=== PATIENT | female | born 1950 | race Caucasian/White ===

== ENCOUNTER 2017-06-02 10:54 | Inpatient (IN) | payer MEDICARE, MEDICAID ==
[~2017-06-02] VITALS: Ht 157.5 cm; Wt 73.0 kg
[~2017-06-02 10:54] MED LIST: BENA10TA3; CLOB15CR4; INSU3INS6 SUBCUT; METF850T2 PO; PARO-41; SIMV40TA5; TRAM50TA3
[2017-06-02] MEDS ORDERED: FAMOTIDINE 20MG/2ML VIAL IV STA (11:21)
[2017-06-02] MEDS ORDERED: SODIUM CHLORIDE 0.9% 500 ML IV ONE (11:21)
[2017-06-02] MEDS ORDERED: ONDANSETRON HCL 4MG/2ML VIAL IV STA (11:21)
[2017-06-02 11:51] LABS: BASOPHILS % 0.3 % (0.0-2.0); EOSINOPHILS % 0.9 % (0.0-5.0); HEMATOCRIT. 35.5 % (36.0-48.0); HEMOGLOBIN. 11.7 g/dL (12.0-16.0); LYMPHOCYTES % 17.3 % (20.0-50.0); MEAN CORPUSCULAR HEMOGLOBIN 27.6 pg (28.0-32.0); MEAN CORPUSCULAR VOLUME 83.6 fL (81.0-99.0); MEAN PLATELET VOLUME 10.4 fl (7.4-10.4); MONOCYTES % 7.4 % (2.0-8.0); NEUTROPHILS % 74.1 % (40.0-76.0); PLATELET 99 x1000/uL (130-400); RED BLOOD CELL COUNT 4.25 mill/uL (4.2-5.4); RED CELL DISTRIBUTION WIDTH 16.4 % (11.6-14.6)
[2017-06-02 12:00] LABS: INR 1.1; PARTIAL THROMBOPLASTIN TIME 24.1 sec (23.4-31.0); PROTHROMBIN TIME 11.6 sec (9.4-11.6)
[2017-06-02 12:09] LABS: CARBON DIOXIDE 25 mEq/L (21-32); CHLORIDE 104 mEq/L (98-107); CREATINE KINASE 74 IU/L (26-192); TROPONIN I < 0.02 ng/mL (0.00-0.04)
[2017-06-02 12:13] LABS: CREATINE KINASE MB FRACTION 0.6 ng/mL (0.5-3.6)
[2017-06-02 14:02] LABS: CLARITY URINE CLEAR (CLEAR); COLOR URINE YELLOW (YELLOW); GLUCOSE URINE NEGATIVE (NEGATIVE); KETONES URINE NEGATIVE (NEGATIVE); LEUKOCYTE ESTERASE URINE NEGATIVE (NEGATIVE); NITRITE URINE NEGATIVE (NEGATIVE); OCCULT BLOOD URINE NEGATIVE (NEGATIVE); PH URINE 6.5 (4.5-8.0); PROTEIN URINE TRACE (NEGATIVE); SPECIFIC GRAVITY URINE 1.005 (1.005-1.030); UROBILINOGEN URINE 0.2 E.U./dL (0.2-1.0)
[2017-06-02 15:54] VITALS: BP 135/83
[2017-06-02 16:00] VITALS: BP 135/83
[2017-06-02] MEDS ORDERED: LOVA40TA73 PO (16:23)
[2017-06-02] MEDS ORDERED: ALBU18HF2 IH (16:25)
[2017-06-02] MEDS ORDERED: OMEP40CA34 PO (16:25)
[2017-06-02] MEDS ORDERED: SAXA5TAB PO (16:25)
[2017-06-02] MEDS ORDERED: TRAMADOL 50MG TABLET PO PRN (16:45)
[2017-06-02] MEDS ORDERED: ONDANSETRON HCL 4MG TABLET PO PRN (16:45)
[2017-06-02] MEDS ORDERED: DEXTROSE 50% WATER 50ML SYRINGE IV PRN (16:45)
[2017-06-02] MEDS ORDERED: ACETAMINOPHEN 325MG TABLET PO PRN (16:45)
[2017-06-02] MEDS ORDERED: METFORMIN HCL 850MG TABLET PO SCH (17:00)
[2017-06-02] MEDS: INSULIN LISPRO 100 UNITS/ML SUBCUT SCH ×2 (17:15→21:06)
[2017-06-02] MEDS: BLOOD SUGAR DIAGNOSTIC STRIP TEST SCH ×2 (17:31→21:06)
[2017-06-02] MEDS: METFORMIN HCL 500MG TABLET PO SCH (17:46)
[2017-06-02] MEDS ORDERED: POTASSIUM CHLORIDE 20MEQ TABLET SR PO NR (20:00)
[2017-06-02 20:40] VITALS: BP 118/62
[2017-06-02] MEDS: PAROXETINE HCL 20MG TABLET PO SCH (20:55)
[2017-06-02] MEDS: ATORVASTATIN CALCIUM 10MG TABLET PO SCH (20:56)
[2017-06-02] MEDS ORDERED: MEDICATION NOT ON FORMULARY EA (Lovastatin 40 MG) PO SCH (21:00)
[2017-06-02] MEDS ORDERED: ZOLPIDEM TARTRATE 5MG TABLET PO PRN (21:00)
[2017-06-03 00:48] VITALS: BP 106/66
[2017-06-03 04:00] VITALS: BP 140/85
[2017-06-03] MEDS: INSULIN LISPRO 100 UNITS/ML SUBCUT SCH ×4 (05:17→21:00)
[2017-06-03] MEDS: BLOOD SUGAR DIAGNOSTIC STRIP TEST SCH ×4 (05:17→21:00)
[2017-06-03 06:07] LABS: BASOPHILS % 0.4 % (0.0-2.0); EOSINOPHILS % 1.5 % (0.0-5.0); HEMATOCRIT. 35.2 % (36.0-48.0); HEMOGLOBIN. 11.8 g/dL (12.0-16.0); LYMPHOCYTES % 38.3 % (20.0-50.0); MEAN CORPUSCULAR HEMOGLOBIN 28.1 pg (28.0-32.0); MEAN CORPUSCULAR VOLUME 84.1 fL (81.0-99.0); MEAN PLATELET VOLUME 10.8 fl (7.4-10.4); NEUTROPHILS % 51.8 % (40.0-76.0); PLATELET 101 x1000/uL (130-400); RED BLOOD CELL COUNT 4.18 mill/uL (4.2-5.4); RED CELL DISTRIBUTION WIDTH 15.9 % (11.6-14.6)
[2017-06-03] MEDS: PANTOPRAZOLE 40MG DR TABLET PO SCH (06:23)
[2017-06-03] MEDS: METFORMIN HCL 500MG TABLET PO SCH ×2 (06:23→17:36)
[2017-06-03 06:45] LABS: CARBON DIOXIDE 26 mEq/L (21-32); CHLORIDE 107 mEq/L (98-107)
[2017-06-03 08:00] VITALS: BP 142/85
[2017-06-03] MEDS ORDERED: MEDICATION NOT ON FORMULARY EA (Omeprazole 1 CAP) PO SCH (09:00)
[2017-06-03] MEDS: BENAZEPRIL 10MG TABLET PO SCH (09:08)
[2017-06-03] MEDS: INSULIN DETEMIR UD 100 UNITS/ML SYR SUBCUT SCH ×2 (11:07→22:55)
[2017-06-03 12:00] VITALS: BP 144/85
[2017-06-03] MEDS: LACTULOSE 20G/30ML UDC PO SCH ×2 (14:16→22:00)
[2017-06-03] MEDS ORDERED: IOHEXOL-300 100 ML BOTTLE ONE (16:00)
[2017-06-03] MEDS ORDERED: SODIUM CHLORIDE 0.9% 10ML VIAL ONE (16:00)
[2017-06-03 20:00] VITALS: BP 147/76
[2017-06-03] MEDS: ATORVASTATIN CALCIUM 10MG TABLET PO SCH (22:47)
[2017-06-03] MEDS: PAROXETINE HCL 20MG TABLET PO SCH (22:47)
[2017-06-04] VITALS: BP 154/93
[2017-06-04 04:00] VITALS: BP 122/72
[2017-06-04] MEDS: LACTULOSE 20G/30ML UDC PO SCH (06:00)
[2017-06-04] MEDS: PANTOPRAZOLE 40MG DR TABLET PO SCH (06:08)
[2017-06-04] MEDS: BLOOD SUGAR DIAGNOSTIC STRIP TEST SCH ×4 (06:10→20:32)
[2017-06-04] MEDS: INSULIN LISPRO 100 UNITS/ML SUBCUT SCH ×4 (07:15→21:55)
[2017-06-04 08:00] VITALS: BP 126/84
[2017-06-04] MEDS: METFORMIN HCL 500MG TABLET PO SCH ×2 (09:38→17:38)
[2017-06-04] MEDS: BENAZEPRIL 10MG TABLET PO SCH (09:39)
[2017-06-04 12:00] VITALS: BP 107/72
[2017-06-04] MEDS: INSULIN DETEMIR UD 100 UNITS/ML SYR SUBCUT SCH ×2 (12:25→21:55)
[2017-06-04 16:00] VITALS: BP 131/76
[2017-06-04 19:45] VITALS: BP 130/79
[2017-06-04] MEDS: ATORVASTATIN CALCIUM 10MG TABLET PO SCH (20:33)
[2017-06-04] MEDS: PAROXETINE HCL 20MG TABLET PO SCH (20:33)
[2017-06-05] VITALS: BP 128/61
[2017-06-05 04:00] VITALS: BP 128/73
[2017-06-05] MEDS: BLOOD SUGAR DIAGNOSTIC STRIP TEST SCH ×2 (05:56→11:56)
[2017-06-05] MEDS: PANTOPRAZOLE 40MG DR TABLET PO SCH (05:56)
[2017-06-05] MEDS: INSULIN LISPRO 100 UNITS/ML SUBCUT SCH ×2 (07:15→12:21)
[2017-06-05 08:00] VITALS: BP 124/68
[2017-06-05] MEDS: BENAZEPRIL 10MG TABLET PO SCH (09:30)
[2017-06-05] MEDS: INSULIN DETEMIR UD 100 UNITS/ML SYR SUBCUT SCH (09:41)
[2017-06-05 11:06] VITALS: BP 139/76
[2017-06-05] MEDS: METFORMIN HCL 500MG TABLET PO SCH (11:59)
[2017-06-05 12:00] VITALS: BP 139/76
[2017-06-05] MEDS ORDERED: ATORVASTATIN CALCIUM 40MG TABLET PO SCH (21:00)
== END 2017-06-05 14:21 | disposition home or self-care (01) | DRG 392 ==
LOC: ER 11:05 → 5WST 12:45 → EDBEDREQ 12:49 → ENRESERV 13:34
PROVIDERS: ADMIT Internal Medicine; ATTEND Internal Medicine
DX: K29.70 Gastritis, unspecified, without bleeding (principal); K76.0 Fatty (change of) liver, not elsewhere classified; I11.0 Hypertensive heart disease with heart failure; I50.9 Heart failure, unspecified; E44.1 Mild protein-calorie malnutrition; E11.65 Type 2 diabetes mellitus with hyperglycemia; D64.9 Anemia, unspecified; F32.9 Major depressive disorder, single episode, unspecified; E78.5 Hyperlipidemia, unspecified; E66.9 Obesity, unspecified; F41.9 Anxiety disorder, unspecified; E86.0 Dehydration; E87.6 Hypokalemia; N81.4 Uterovaginal prolapse, unspecified; E78.00 Pure hypercholesterolemia, unspecified; Z79.4 Long term (current) use of insulin; Z79.899 Other long term (current) drug therapy; Z87.11 Personal history of peptic ulcer disease; Z88.1 Allergy status to other antibiotic agents; Z88.5 Allergy status to narcotic agent; Z79.84 Long term (current) use of oral hypoglycemic drugs; Z68.29 Body mass index [BMI] 29.0-29.9, adult; Z90.710 Acquired absence of both cervix and uterus
CPT/HCPCS: 36415; 71010; 74178; 76705; 80053; 81001; 82550; 82553; 82962; 83036; 83690; 84443; 84484; 85025; 85610; 85730; 86850; 86900; 93005; 93306; 96361; 96374; 96375; 99285; A4216; J1815; J2405; J3490; J7040; Q0162; Q9967

== ENCOUNTER 2018-01-22 19:58 | Emergency (ER) | payer MEDICARE, MEDICAID ==
[~2018-01-22] VITALS: Ht 160 cm; Wt 71.0 kg
[~2018-01-22 19:58] MED LIST changes: +ALBU18HF2 IH; -CLOB15CR4; -INSU3INS6 SUBCUT; +LOVA40TA73 PO; +OMEP40CA34 PO; +SAXA5TAB PO; -SIMV40TA5; -TRAM50TA3
[2018-01-22] MEDS ORDERED: PHENAZOPYRIDINE HCL 100MG TABLET PO ONE (21:15)
[2018-01-22] MEDS ORDERED: BENAZEPRIL 10MG TABLET PO ONE (21:30)
[2018-01-22] MEDS ORDERED: NITROFURANTOIN 100MG M/M CAPSULE PO ONE (23:15)
[2018-01-22] MEDS ORDERED: CLONIDINE 0.2MG TABLET PO ONE (23:15)
[2018-01-23 00:18] VITALS: BP 170/96
[2018-01-23 00:50] LABS: CLARITY URINE CLOUDY (CLEAR); COLOR URINE YELLOW (YELLOW); KETONES URINE NEGATIVE (NEGATIVE); LEUKOCYTE ESTERASE URINE 3+ (NEGATIVE); NITRITE URINE NEGATIVE (NEGATIVE); OCCULT BLOOD URINE 3+ (NEGATIVE); PROTEIN URINE TRACE (NEGATIVE); SPECIFIC GRAVITY URINE 1.006 (1.005-1.030)
[2018-01-23 01:15] LABS: *AMPHETAMINES SCREEN URINE NEGATIVE (NEGATIVE)
[2018-01-23 01:16] LABS: *BARBITURATES SCREEN URINE NEGATIVE (NEGATIVE); *BENZODIAZEPINES SCREEN URINE NEGATIVE (NEGATIVE); *COCAINE SCREEN URINE NEGATIVE (NEGATIVE); CANNABINOID URINE SCREEN NEGATIVE (NEGATIVE); METHADONE URINE SCREEN NEGATIVE (NEGATIVE); OPIATES URINE SCREEN NEGATIVE (NEGATIVE); PHENCYCLIDINE URINE SCREEN NEGATIVE (NEGATIVE)
== END 2018-01-23 00:47 | disposition home or self-care (01) ==
LOC: ER 20:39
DX: R30.0 Dysuria (principal); I10 Essential (primary) hypertension; E78.00 Pure hypercholesterolemia, unspecified; M19.90 Unspecified osteoarthritis, unspecified site; E11.9 Type 2 diabetes mellitus without complications; E78.5 Hyperlipidemia, unspecified; Z88.5 Allergy status to narcotic agent; Z88.1 Allergy status to other antibiotic agents; Z79.84 Long term (current) use of oral hypoglycemic drugs
CPT/HCPCS: 80305; 81003; 82962; 87077; 87086; 87186; 99284

== ENCOUNTER 2018-06-26 13:43 | Emergency (ER) | payer MEDICARE, MEDICAID ==
[~2018-06-26] VITALS: Ht 162.6 cm; Wt 82.0 kg
[~2018-06-26 13:43] MED LIST changes: +BENA10TA10 PO; -BENA10TA3; +ERGO2000 *; +ERGO2000 PO; +INSU200I4 SQ; +METF-416 PO; -METF850T2 PO; -PARO-41; +PARO10TA74 PO
[2018-06-26] MEDS ORDERED: SODIUM CHLORIDE 0.9% 1,000 ML IV ONE (16:09)
[2018-06-26] MEDS ORDERED: MORPHINE SULFATE 4 MG/ML CPJ (NOT FOR IM USE) IV STA (16:09)
[2018-06-26] MEDS ORDERED: ONDANSETRON HCL 4MG/2ML INJ IV STA (16:09)
[2018-06-26 18:04] VITALS: BP 143/82
== END 2018-06-26 20:29 | disposition home or self-care (01) ==
LOC: ER 14:55
DX: S00.83XA Contusion of other part of head, initial encounter (principal); S50.01XA Contusion of right elbow, initial encounter; I10 Essential (primary) hypertension; E11.9 Type 2 diabetes mellitus without complications; Z79.4 Long term (current) use of insulin; Z88.5 Allergy status to narcotic agent; Z88.3 Allergy status to other anti-infective agents; W01.0XXA Fall on same level from slipping, tripping and stumbling without subsequent striking against object, initial encounter; Y93.89 Activity, other specified; Y92.488 Other paved roadways as the place of occurrence of the external cause
CPT/HCPCS: 70450; 72170; 73030; 73080; 99284; J7030; J2270; J2405

== ENCOUNTER 2019-03-09 00:29 | Emergency (ER) | payer MEDICARE, MEDICAID ==
[~2019-03-09] VITALS: Ht 157.5 cm; Wt 77.0 kg
[2019-03-09] MEDS ORDERED: ONDANSETRON HCL 4MG/2ML INJ IV STA (03:19)
[2019-03-09] MEDS ORDERED: SODIUM CHLORIDE 0.9% 1,000 ML IV ONE (03:19)
[2019-03-09 04:03] LABS: BASOPHILS % 0.3 % (0.0-2.0); EOSINOPHILS % 0.8 % (0.0-5.0); HEMATOCRIT. 36.2 % (36.0-48.0); HEMOGLOBIN. 12.1 g/dL (12.0-16.0); LYMPHOCYTES % 29.9 % (20.0-50.0); MEAN CORPUSCULAR HEMOGLOBIN 27.6 pg (28.0-32.0); MEAN CORPUSCULAR VOLUME 82.9 fL (81.0-99.0); MEAN PLATELET VOLUME 10.4 fl (7.4-10.4); MONOCYTES % 7.9 % (2.0-8.0); NEUTROPHILS % 61.1 % (40.0-76.0); PLATELET 96 x1000/uL (130-400); RED BLOOD CELL COUNT 4.37 mill/uL (4.2-5.4)
[2019-03-09 04:08] LABS: INR 1.1; PROTHROMBIN TIME 11.3 sec (9.6-11.0)
[2019-03-09 04:09] LABS: CHLORIDE 108 mEq/L (98-107)
[2019-03-09 04:17] LABS: CLARITY URINE CLEAR (CLEAR); COLOR URINE YELLOW (YELLOW); KETONES URINE NEGATIVE (NEGATIVE); LEUKOCYTE ESTERASE URINE NEGATIVE (NEGATIVE); NITRITE URINE NEGATIVE (NEGATIVE); OCCULT BLOOD URINE NEGATIVE (NEGATIVE); PH URINE 7.5 (4.5-8.0); PROTEIN URINE 2+ (NEGATIVE); SPECIFIC GRAVITY URINE 1.008 (1.005-1.030); UROBILINOGEN URINE 0.2 E.U./dL (0.2-1.0)
[2019-03-09 04:23] LABS: BETA HYDROXYBUTYRATE 0.1 mMol/L (0.0-0.3)
[2019-03-09 06:59] VITALS: BP 122/87
== END 2019-03-09 07:15 | disposition home or self-care (01) ==
LOC: ER 00:29
DX: I10 Essential (primary) hypertension (principal); E11.65 Type 2 diabetes mellitus with hyperglycemia; Z79.4 Long term (current) use of insulin; Z79.84 Long term (current) use of oral hypoglycemic drugs
CPT/HCPCS: 36415; 74176; 80053; 81003; 82010; 83690; 85025; 85610; 93005; 96361; 96374; 99284; J2405; J7030

== ENCOUNTER 2020-09-01 17:48 | Emergency (ER) | payer MEDICARE, MEDICAID ==
[~2020-09-01] VITALS: Ht 160 cm; Wt 83.0 kg
[~2020-09-01 17:48] MED LIST changes: -BENA10TA10 PO; +BENA10TA74 PO; +OMEP40CA12 PO; -OMEP40CA34 PO
[2020-09-01 17:54] VITALS: BP 151/76
[2020-09-01] MEDS ORDERED: MAGNESIUM/ALUMINUM HYDROXIDE/SIMETHICONE 30ML UDC PO STA (17:58)
== END 2020-09-01 19:08 | disposition left against medical advice (07) ==
LOC: ER 17:48
DX: R10.13 Epigastric pain (principal); E11.9 Type 2 diabetes mellitus without complications; Z79.4 Long term (current) use of insulin; K29.70 Gastritis, unspecified, without bleeding; Z90.49 Acquired absence of other specified parts of digestive tract
CPT/HCPCS: 99283

== ENCOUNTER 2021-01-24 15:40 | Inpatient (IN) | payer MEDICARE, MEDICAID ==
[~2021-01-24] VITALS: Ht 157.5 cm; Wt 68.2 kg
[~2021-01-24 15:40] MED LIST changes: +DULA0.75 SQ; -METF-416 PO; -OMEP40CA12 PO; -SAXA5TAB PO
[2021-01-24] MEDS ORDERED: LIPASE/PROTEASE/AMYLASE 4,200/14,200/24,600 UNITS CAP DR GT ONE (16:15)
[2021-01-24] MEDS ORDERED: MORPHINE SULFATE 4 MG/ML CPJ (NOT FOR IM USE) IV STA (16:25)
[2021-01-24] MEDS ORDERED: ONDANSETRON HCL 4MG/2ML INJ IV STA (16:25)
[2021-01-24] MEDS ORDERED: SODIUM CHLORIDE 0.9% 500 ML IV ONE (16:30)
[2021-01-24] MEDS ORDERED: SODIUM CHLORIDE 0.9% 1,000 ML IV ONE (16:30)
[2021-01-24 16:54] LABS: BASOPHILS % 0.3 % (0.0-2.0); EOSINOPHILS % 1.9 % (0.0-5.0); HEMATOCRIT. 33.4 % (36.0-48.0); HEMOGLOBIN. 11.1 g/dL (12.0-16.0); LYMPHOCYTES % 31.1 % (20.0-50.0); MEAN CORPUSCULAR HEMOGLOBIN 28.4 pg (28.0-32.0); MEAN CORPUSCULAR VOLUME 85.7 fL (81.0-99.0); MEAN PLATELET VOLUME 10.3 fl (7.4-10.4); MONOCYTES % 8.8 % (2.0-8.0); NEUTROPHILS % 57.9 % (40.0-76.0); PLATELET 91 x1000/uL (130-400); RED CELL DISTRIBUTION WIDTH 18.4 % (11.6-14.6)
[2021-01-24 17:00] LABS: CHLORIDE 103 mEq/L (98-107)
[2021-01-24] MEDS ORDERED: LIPASE/PROTEASE/AMYLASE 5,000/17,000/24,000 UNITS CAP DR PO NR (17:00)
[2021-01-24 17:01] LABS: INR 1.1; PROTHROMBIN TIME 11.3 sec (9.6-11.0)
[2021-01-24 18:57] LABS: T4 FREE 0.99 ng/dL (0.76-1.46)
[2021-01-24] MEDS ORDERED: IOHEXOL-300 100 ML BOTTLE ONE (20:13)
[2021-01-25] VITALS (7 sets, daily range): BP systolic 95–143; BP diastolic 59–87
[2021-01-25 00:10] LABS: CLARITY URINE CLEAR (CLEAR); COLOR URINE YELLOW (YELLOW); KETONES URINE NEGATIVE (NEGATIVE); LEUKOCYTE ESTERASE URINE TRACE (NEGATIVE); NITRITE URINE NEGATIVE (NEGATIVE); OCCULT BLOOD URINE NEGATIVE (NEGATIVE); PROTEIN URINE NEGATIVE (NEGATIVE); SPECIFIC GRAVITY URINE 1.037 (1.005-1.030); UROBILINOGEN URINE 0.2 E.U./dL (0.2-1.0)
[2021-01-25] MEDS ORDERED: ONDANSETRON HCL 4MG/2ML INJ IV PRN (00:45)
[2021-01-25] MEDS ORDERED: HYDROMORPHONE HCL/PF 2MG/ML CPJ IV PRN (00:45)
[2021-01-25] MEDS ORDERED: DEXTROSE 50% WATER 50ML SYRINGE IV PRN (00:45)
[2021-01-25] MEDS ORDERED: LOVA20TA2 PO (01:29)
[2021-01-25] MEDS ORDERED: PROT40 PO (01:31)
[2021-01-25] MEDS ORDERED: LANTUSUD SUBCUT (01:35)
[2021-01-25] MEDS: BLOOD SUGAR DIAGNOSTIC STRIP TEST SCH ×4 (06:39→21:00)
[2021-01-25] MEDS: INSULIN LISPRO 100 UNITS/ML SUBCUT SCH ×4 (06:39→21:08)
[2021-01-25] MEDS: PANTOPRAZOLE SODIUM 40 MG/VIAL IV SCH (08:58)
[2021-01-25] MEDS: AMLODIPINE 5MG TABLET PO SCH (08:58)
[2021-01-25] MEDS: LISINOPRIL 20MG TABLET PO SCH ×2 (08:58→21:06)
[2021-01-25] MEDS ORDERED: MORPHINE SULFATE 2 MG/ML CPJ (NOT FOR IM USE) IV PRN (10:30)
[2021-01-25] MEDS: LACTULOSE 20G/30ML UDC PO SCH (12:21)
[2021-01-25] MEDS ORDERED: IOHEXOL-300 50 ML BOTTLE IV ONE (14:00)
[2021-01-25] MEDS: ENOXAPARIN 40MG/0.4ML SYR SUBCUT SCH (16:00)
[2021-01-25] MEDS: HYDROCODONE/APAP 7.5/325MG 1 TAB TABLET PO PRN ×2 (17:17→21:05)
[2021-01-25] MEDS: ATORVASTATIN CALCIUM 20MG TABLET PO SCH (21:06)
[2021-01-25] MEDS: INSULIN GLARGINE UD 100 UNITS/ML SYR SUBCUT SCH (21:09)
[2021-01-26] VITALS: BP 124/64
[2021-01-26 04:00] VITALS: BP 111/61
[2021-01-26] MEDS: HYDROCODONE/APAP 7.5/325MG 1 TAB TABLET PO PRN ×2 (04:22→20:13)
[2021-01-26] MEDS: BLOOD SUGAR DIAGNOSTIC STRIP TEST SCH ×4 (06:26→20:20)
[2021-01-26] MEDS: INSULIN LISPRO 100 UNITS/ML SUBCUT SCH ×4 (06:27→20:28)
[2021-01-26 07:23] LABS: BASOPHILS % 0.4 % (0.0-2.0); EOSINOPHILS % 2.6 % (0.0-5.0); HEMATOCRIT. 31.2 % (36.0-48.0); HEMOGLOBIN. 10.4 g/dL (12.0-16.0); LYMPHOCYTES % 38.9 % (20.0-50.0); MEAN CORPUSCULAR HEMOGLOBIN 28.8 pg (28.0-32.0); MEAN CORPUSCULAR VOLUME 86.6 fL (81.0-99.0); MEAN PLATELET VOLUME 10.3 fl (7.4-10.4); MONOCYTES % 10.9 % (2.0-8.0); NEUTROPHILS % 47.2 % (40.0-76.0); PLATELET 91 x1000/uL (130-400); RED BLOOD CELL COUNT 3.61 mill/uL (4.2-5.4); RED CELL DISTRIBUTION WIDTH 18.6 % (11.6-14.6)
[2021-01-26 08:00] VITALS: BP 102/59
[2021-01-26] MEDS: AMLODIPINE 5MG TABLET PO SCH (08:37)
[2021-01-26] MEDS: LISINOPRIL 20MG TABLET PO SCH ×2 (08:38→20:13)
[2021-01-26] MEDS: PANTOPRAZOLE SODIUM 40 MG/VIAL IV SCH (09:40)
[2021-01-26] MEDS: LACTULOSE 20G/30ML UDC PO SCH ×3 (09:40→17:31)
[2021-01-26 12:00] VITALS: BP 138/80
[2021-01-26 16:00] VITALS: BP 134/74
[2021-01-26] MEDS: ENOXAPARIN 40MG/0.4ML SYR SUBCUT SCH (16:00)
[2021-01-26 20:00] VITALS: BP 144/81
[2021-01-26] MEDS: ATORVASTATIN CALCIUM 20MG TABLET PO SCH (20:13)
[2021-01-26] MEDS: INSULIN GLARGINE UD 100 UNITS/ML SYR SUBCUT SCH (22:10)
[2021-01-27] VITALS: BP 137/75
[2021-01-27 04:00] VITALS: BP 118/63
[2021-01-27] MEDS: HYDROCODONE/APAP 7.5/325MG 1 TAB TABLET PO PRN ×2 (04:21→14:06)
[2021-01-27] MEDS: BLOOD SUGAR DIAGNOSTIC STRIP TEST SCH ×4 (06:35→21:21)
[2021-01-27] MEDS: PANTOPRAZOLE 40MG DR TABLET PO SCH (06:36)
[2021-01-27] MEDS: INSULIN LISPRO 100 UNITS/ML SUBCUT SCH ×4 (06:38→21:31)
[2021-01-27 08:00] VITALS: BP 121/70
[2021-01-27] MEDS: LACTULOSE 20G/30ML UDC PO SCH ×3 (09:00→17:00)
[2021-01-27] MEDS: LISINOPRIL 20MG TABLET PO SCH ×2 (09:10→20:06)
[2021-01-27] MEDS: AMLODIPINE 5MG TABLET PO SCH (09:10)
[2021-01-27 12:00] VITALS: BP 139/85
[2021-01-27 16:00] VITALS: BP 113/54
[2021-01-27 20:00] VITALS: BP 146/79
[2021-01-27] MEDS: ATORVASTATIN CALCIUM 20MG TABLET PO SCH (20:05)
[2021-01-27] MEDS: INSULIN GLARGINE UD 100 UNITS/ML SYR SUBCUT SCH (21:30)
[2021-01-28 00:01] VITALS: BP 141/81
[2021-01-28] MEDS: HYDROCODONE/APAP 7.5/325MG 1 TAB TABLET PO PRN ×2 (02:05→09:54)
[2021-01-28 04:00] VITALS: BP 119/67
[2021-01-28] MEDS: BLOOD SUGAR DIAGNOSTIC STRIP TEST SCH ×2 (07:00→11:51)
[2021-01-28] MEDS: INSULIN LISPRO 100 UNITS/ML SUBCUT SCH ×2 (07:00→12:18)
[2021-01-28] MEDS: PANTOPRAZOLE 40MG DR TABLET PO SCH (07:24)
[2021-01-28 08:00] VITALS: BP 102/50
[2021-01-28 08:46] LABS: BASOPHILS % 0.2 % (0.0-2.0); EOSINOPHILS % 1.5 % (0.0-5.0); HEMATOCRIT. 37.6 % (36.0-48.0); HEMOGLOBIN. 12.2 g/dL (12.0-16.0); LYMPHOCYTES % 37.4 % (20.0-50.0); MEAN CORPUSCULAR HEMOGLOBIN 28.3 pg (28.0-32.0); MEAN CORPUSCULAR VOLUME 86.7 fL (81.0-99.0); MONOCYTES % 8.7 % (2.0-8.0); NEUTROPHILS % 52.2 % (40.0-76.0); PLATELET 122 x1000/uL (130-400); RED BLOOD CELL COUNT 4.33 mill/uL (4.2-5.4); RED CELL DISTRIBUTION WIDTH 18.2 % (11.6-14.6)
[2021-01-28 08:57] LABS: CHLORIDE 99 mEq/L (98-107)
[2021-01-28] MEDS: AMLODIPINE 5MG TABLET PO SCH (09:00)
[2021-01-28] MEDS: LISINOPRIL 20MG TABLET PO SCH (09:00)
[2021-01-28] MEDS: LACTULOSE 20G/30ML UDC PO SCH ×2 (09:54→12:17)
[2021-01-28 12:00] VITALS: BP 139/76
== END 2021-01-28 13:05 | DRG 948 ==
LOC: ER 16:06 → 5WST 18:29 → EDBEDREQ 18:33 → EDBEDREQTM 18:33 → ENRESERV 22:26
PROVIDERS: ADMIT Internal Medicine; ATTEND Internal Medicine
PROC: BF031ZZ Plain Radiography of Gallbladder and Bile Ducts using Low Osmolar Contrast (ICD-10-PCS; principal; 2021-01-25)
DX: G89.18 Other acute postprocedural pain (principal); E44.0 Moderate protein-calorie malnutrition; K76.6 Portal hypertension; K74.60 Unspecified cirrhosis of liver; D64.9 Anemia, unspecified; E11.9 Type 2 diabetes mellitus without complications; E66.01 Morbid (severe) obesity due to excess calories; E78.00 Pure hypercholesterolemia, unspecified; F41.9 Anxiety disorder, unspecified; J45.909 Unspecified asthma, uncomplicated; M85.80 Other specified disorders of bone density and structure, unspecified site; K59.00 Constipation, unspecified; I10 Essential (primary) hypertension; Z82.49 Family history of ischemic heart disease and other diseases of the circulatory system; Z83.3 Family history of diabetes mellitus; Z87.01 Personal history of pneumonia (recurrent); Z87.448 Personal history of other diseases of urinary system; Z68.27 Body mass index [BMI] 27.0-27.9, adult; Z93.4 Other artificial openings of gastrointestinal tract status
CPT/HCPCS: 36415; 47531; 71045; 74018; 74177; 80048; 80053; 81003; 82962; 83036; 83605; 84145; 84439; 84443; 84484; 85025; 86850; 86900; 87077; 93005; 93970; 99285; C9113; J1170; J1650; J1815; J2270; J2405; J7030; J7040; Q9967

== ENCOUNTER → 2021-06-27 | Outpatient (CLI) | payer MEDICARE, MEDICAID ==
[~2021-06-27] MED LIST changes: -ALBU18HF2 IH; -BENA10TA74 PO; -DULA0.75 SQ; -ERGO2000 *; -INSU200I4 SQ; +LANTUSUD SUBCUT; +LOVA20TA2 PO; -LOVA40TA73 PO; +PROT40 PO
== END | disposition home or self-care (01) ==
LOC: NM 08:38
PROVIDERS: ATTEND Internal Medicine
DX: K81.0 Acute cholecystitis (principal)
CPT/HCPCS: 78227; A9537

== ENCOUNTER 2022-07-12 16:50 | Inpatient (IN) | payer MEDICARE, MEDICAID ==
[~2022-07-12] VITALS: Ht 157.5 cm; Wt 64.9 kg
[~2022-07-12 16:50] MED LIST changes: -PROT40 PO
[2022-07-12] MEDS ORDERED: PANTOPRAZOLE SODIUM 40 MG/VIAL IV ONE (18:30)
[2022-07-12] MEDS ORDERED: SODIUM CHLORIDE 0.9% 1000ML BAG (SEPSIS BOLUS) IV ONE (18:30)
[2022-07-12 21:35] LABS: CHLORIDE 110 mEq/L (98-107)
[2022-07-12 21:39] LABS: BASOPHILS % 0.4 % (0.0-2.0); EOSINOPHILS % 0.7 % (0.0-5.0); HEMATOCRIT. 21.7 % (36.0-48.0); HEMOGLOBIN. 7.2 g/dL (12.0-16.0); LYMPHOCYTES % 30.9 % (20.0-50.0); MEAN CORPUSCULAR HEMOGLOBIN 30.8 pg (28.0-32.0); MEAN CORPUSCULAR VOLUME 92.4 fL (81.0-99.0); MEAN PLATELET VOLUME 10.6 fl (7.4-10.4); MONOCYTES % 7.3 % (2.0-8.0); NEUTROPHILS % 60.7 % (40.0-76.0); PLATELET 69 x1000/uL (130-400); RED BLOOD CELL COUNT 2.34 mill/uL (4.2-5.4); RED CELL DISTRIBUTION WIDTH 16.5 % (11.6-14.6)
[2022-07-12 21:40] LABS: CLARITY URINE CLEAR (CLEAR); COLOR URINE YELLOW (YELLOW); KETONES URINE TRACE (NEGATIVE); LEUKOCYTE ESTERASE URINE NEGATIVE (NEGATIVE); NITRITE URINE NEGATIVE (NEGATIVE); OCCULT BLOOD URINE NEGATIVE (NEGATIVE); PH URINE 5.5 (4.5-8.0); PROTEIN URINE NEGATIVE (NEGATIVE); UROBILINOGEN URINE 0.2 E.U./dL (0.2-1.0)
[2022-07-12 21:41] LABS: INR 1.2; PROTHROMBIN TIME 12.3 sec (9.6-11.0)
[2022-07-12] MEDS ORDERED: MORPHINE SULFATE 4 MG/ML CPJ (NOT FOR IM USE) IV ONE (22:30)
[2022-07-12] MEDS ORDERED: CEFTRIAXONE 1 G PREMIX 50 ML IV NR (22:45)
[2022-07-12] MEDS ORDERED: OCTREOTIDE ACETATE 50 MCG/ML 1ML IV NR (22:49)
[2022-07-12] MEDS ORDERED: OCTREOTIDE 1,000 MCG in SODIUM CHLORIDE 0.9% 98 ML IV NR ×4 (23:00)
[2022-07-12 23:22] LABS: BASOPHILS % 0.3 % (0.0-2.0); EOSINOPHILS % 0.6 % (0.0-5.0); HEMATOCRIT. 23.7 % (36.0-48.0); HEMOGLOBIN. 7.8 g/dL (12.0-16.0); LYMPHOCYTES % 33.5 % (20.0-50.0); MEAN CORPUSCULAR HEMOGLOBIN 30.7 pg (28.0-32.0); MEAN CORPUSCULAR VOLUME 92.7 fL (81.0-99.0); MEAN PLATELET VOLUME 10.6 fl (7.4-10.4); MONOCYTES % 7.2 % (2.0-8.0); NEUTROPHILS % 58.4 % (40.0-76.0); PLATELET 85 x1000/uL (130-400); RED BLOOD CELL COUNT 2.55 mill/uL (4.2-5.4); RED CELL DISTRIBUTION WIDTH 16.6 % (11.6-14.6)
[2022-07-12 23:27] LABS: INR 1.1; PROTHROMBIN TIME 11.8 sec (9.6-11.0)
[2022-07-12] MEDS ORDERED: PANTOPRAZOLE 80 MG in SODIUM CHLORIDE 0.9% 100 ML IV NR (23:59)
[2022-07-13] VITALS (8 sets, daily range): BP systolic 107–132; BP diastolic 59–68
[2022-07-13] MEDS ORDERED: DEXTROSE 50% WATER 50ML SYRINGE IV PRN (06:30)
[2022-07-13] MEDS: ACETAMINOPHEN 500MG TABLET PO PRN (07:09)
[2022-07-13] MEDS: INSULIN LISPRO 100 UNITS/ML SUBCUT SCH ×4 (07:39→21:00)
[2022-07-13] MEDS: BLOOD SUGAR DIAGNOSTIC STRIP TEST SCH ×4 (07:39→21:00)
[2022-07-13] MEDS: DEXT 5%/0.45% NACL 1000ML 1,000 ML IV SCH (09:32)
[2022-07-13 11:49] LABS: BASOPHILS % 0.4 % (0.0-2.0); EOSINOPHILS % 1.4 % (0.0-5.0); HEMATOCRIT. 22.8 % (36.0-48.0); HEMOGLOBIN. 7.5 g/dL (12.0-16.0); LYMPHOCYTES % 36.6 % (20.0-50.0); MEAN CORPUSCULAR HEMOGLOBIN 30.8 pg (28.0-32.0); MEAN CORPUSCULAR VOLUME 93.1 fL (81.0-99.0); MEAN PLATELET VOLUME 10.6 fl (7.4-10.4); MONOCYTES % 8.9 % (2.0-8.0); NEUTROPHILS % 52.7 % (40.0-76.0); PLATELET 72 x1000/uL (130-400); RED BLOOD CELL COUNT 2.45 mill/uL (4.2-5.4)
[2022-07-13] MEDS ORDERED: NALOXONE HCL 0.4MG/ML VIAL IV PRN (12:15)
[2022-07-13] MEDS: MORPHINE SULFATE 2 MG/ML CPJ (NOT FOR IM USE) IV PRN (12:36)
[2022-07-13 13:50] LABS: INR 1.1; PROTHROMBIN TIME 11.7 sec (9.6-11.0)
[2022-07-13 14:33] LABS: CHLORIDE 114 mEq/L (98-107)
[2022-07-13] MEDS: PANTOPRAZOLE SODIUM 40 MG/VIAL IV SCH (15:51)
[2022-07-13] MEDS: CARVEDILOL 3.125 MG TABLET PO SCH ×2 (15:52→21:33)
[2022-07-13] MEDS: IRON SUCROSE COMPLEX 100 MG/5 ML ML IV SCH (15:52)
[2022-07-13] MEDS: OCTREOTIDE 1,000 MCG in SODIUM CHLORIDE 0.9% 98 ML IV SCH (17:33)
[2022-07-13 17:57] LABS: HEMATOCRIT 21.6 % (36.0-48.0); HEMOGLOBIN 7.2 g/dL (12.0-16.0)
[2022-07-13 18:56] LABS: GAMMA GLUTAMYL TRANSPEPTIDASE 215 IU/L (7-32); TOTAL IRON BINDING CAPACITY 332 ug/dL (250-450)
[2022-07-13 18:58] LABS: CARCINO EMBRYONIC ANTIGEN 2.1 ng/ml; FERRITIN 31 ng/mL (10-291)
[2022-07-13 19:09] LABS: HEPATITIS B SURFACE ANTIGEN NEGATIVE
[2022-07-13 19:27] LABS: VITAMIN B12 SERUM 555 pg/mL (211-911)
[2022-07-14] MEDS: MORPHINE SULFATE 2 MG/ML CPJ (NOT FOR IM USE) IV PRN ×2 (01:49→12:42)
[2022-07-14 01:59] LABS: HEMATOCRIT 21.9 % (36.0-48.0); HEMOGLOBIN 7.3 g/dL (12.0-16.0)
[2022-07-14] MEDS: PANTOPRAZOLE SODIUM 40 MG/VIAL IV SCH ×2 (06:13→18:17)
[2022-07-14] MEDS: BLOOD SUGAR DIAGNOSTIC STRIP TEST SCH ×4 (07:47→21:45)
[2022-07-14 08:00] VITALS: BP 137/71
[2022-07-14] MEDS: INSULIN LISPRO 100 UNITS/ML SUBCUT SCH ×4 (08:00→21:51)
[2022-07-14 08:01] LABS: HEMATOCRIT 27.1 % (36.0-48.0); HEMOGLOBIN 9.1 g/dL (12.0-16.0)
[2022-07-14 09:19] LABS: CHLORIDE 110 mEq/L (98-107)
[2022-07-14] MEDS: CARVEDILOL 3.125 MG TABLET PO SCH ×2 (09:37→21:45)
[2022-07-14 10:00] VITALS: BP 123/60
[2022-07-14] MEDS: OCTREOTIDE 1,000 MCG in SODIUM CHLORIDE 0.9% 98 ML IV SCH (10:30)
[2022-07-14] MEDS: DEXT 5%/0.45% NACL 1000ML 1,000 ML IV SCH ×2 (11:25→21:20)
[2022-07-14 12:00] VITALS: BP 110/69
[2022-07-14 13:12] LABS: HEMATOCRIT 23.9 % (36.0-48.0)
[2022-07-14 14:00] VITALS: BP 140/69
[2022-07-14] MEDS: IRON SUCROSE COMPLEX 100 MG/5 ML ML IV SCH (14:30)
[2022-07-14 16:00] VITALS: BP 131/60
[2022-07-14 18:00] VITALS: BP 126/62
[2022-07-14] MEDS: ACETAMINOPHEN 500MG TABLET PO PRN (18:35)
[2022-07-15] VITALS (12 sets, daily range): BP systolic 88–141; BP diastolic 48–79
[2022-07-15] MEDS: MORPHINE SULFATE 2 MG/ML CPJ (NOT FOR IM USE) IV PRN (00:37)
[2022-07-15] MEDS: DEXT 5%/0.45% NACL 1000ML 1,000 ML IV SCH ×2 (01:20→11:54)
[2022-07-15] MEDS: PANTOPRAZOLE SODIUM 40 MG/VIAL IV SCH ×2 (06:29→21:20)
[2022-07-15] MEDS: ACETAMINOPHEN 500MG TABLET PO PRN ×4 (06:30→23:46)
[2022-07-15 06:36] LABS: BASOPHILS % 0.5 % (0.0-2.0); EOSINOPHILS % 3.9 % (0.0-5.0); HEMATOCRIT. 25.1 % (36.0-48.0); HEMOGLOBIN. 8.4 g/dL (12.0-16.0); LYMPHOCYTES % 40.9 % (20.0-50.0); MEAN CORPUSCULAR HEMOGLOBIN 31.2 pg (28.0-32.0); MEAN CORPUSCULAR VOLUME 93.7 fL (81.0-99.0); MEAN PLATELET VOLUME 10.6 fl (7.4-10.4); MONOCYTES % 8.7 % (2.0-8.0); PLATELET 93 x1000/uL (130-400); RED BLOOD CELL COUNT 2.68 mill/uL (4.2-5.4); RED CELL DISTRIBUTION WIDTH 16.9 % (11.6-14.6)
[2022-07-15] MEDS: BLOOD SUGAR DIAGNOSTIC STRIP TEST SCH ×4 (07:30→21:22)
[2022-07-15] MEDS: CARVEDILOL 3.125 MG TABLET PO SCH ×2 (10:25→21:22)
[2022-07-15] MEDS: INSULIN LISPRO 100 UNITS/ML SUBCUT SCH ×4 (10:26→21:00)
[2022-07-15 11:35] LABS: CHLORIDE 107 mEq/L (98-107)
[2022-07-15] MEDS: IRON SUCROSE COMPLEX 100 MG/5 ML ML IV SCH (13:50)
[2022-07-15] MEDS ORDERED: NA PHOS,M-B/NA PHOS,DI-BA ENEMA 118ML PR NR (20:00)
[2022-07-15] MEDS ORDERED: LACTULOSE 20G/30ML UDC PO PRN (20:00)
[2022-07-15] MEDS: OCTREOTIDE 1,000 MCG in SODIUM CHLORIDE 0.9% 98 ML IV SCH (22:30)
[2022-07-16] VITALS (13 sets, daily range): BP systolic 96–161; BP diastolic 63–98
[2022-07-16] MEDS: OCTREOTIDE 1,000 MCG in SODIUM CHLORIDE 0.9% 98 ML IV SCH ×2 (02:30→23:13)
[2022-07-16] MEDS: DEXT 5%/0.45% NACL 1000ML 1,000 ML IV SCH ×2 (03:25→06:19)
[2022-07-16] MEDS: ACETAMINOPHEN 500MG TABLET PO PRN (03:28)
[2022-07-16] MEDS: MORPHINE SULFATE 2 MG/ML CPJ (NOT FOR IM USE) IV PRN (03:50)
[2022-07-16 05:03] LABS: BASOPHILS % 0.5 % (0.0-2.0); EOSINOPHILS % 2.6 % (0.0-5.0); HEMATOCRIT. 24.3 % (36.0-48.0); HEMOGLOBIN. 8.2 g/dL (12.0-16.0); LYMPHOCYTES % 36.3 % (20.0-50.0); MEAN CORPUSCULAR HEMOGLOBIN 31.4 pg (28.0-32.0); MEAN CORPUSCULAR VOLUME 93.3 fL (81.0-99.0); MEAN PLATELET VOLUME 10.3 fl (7.4-10.4); MONOCYTES % 7.5 % (2.0-8.0); NEUTROPHILS % 53.1 % (40.0-76.0); PLATELET 96 x1000/uL (130-400); RED CELL DISTRIBUTION WIDTH 17.2 % (11.6-14.6)
[2022-07-16 05:15] LABS: CHLORIDE 108 mEq/L (98-107)
[2022-07-16 05:42] LABS: INR 1.2; PROTHROMBIN TIME 12.3 sec (9.6-11.0)
[2022-07-16] MEDS: BLOOD SUGAR DIAGNOSTIC STRIP TEST SCH ×4 (07:52→21:39)
[2022-07-16] MEDS: INSULIN LISPRO 100 UNITS/ML SUBCUT SCH ×4 (07:52→21:49)
[2022-07-16] MEDS ORDERED: MORPHINE SULFATE 2 MG/ML CPJ (NOT FOR IM USE) IV PRN (10:00)
[2022-07-16] MEDS ORDERED: NALOXONE HCL 0.4MG/ML VIAL IV PRN (10:30)
[2022-07-16] MEDS: PANTOPRAZOLE SODIUM 40 MG/VIAL IV SCH ×2 (11:16→21:39)
[2022-07-16] MEDS: TRAMADOL 50MG TABLET PO PRN (11:16)
[2022-07-16] MEDS: CARVEDILOL 3.125 MG TABLET PO SCH ×2 (11:18→21:39)
[2022-07-16] MEDS ORDERED: PROPOFOL 200MG/20ML VIAL IV ONE (13:02)
[2022-07-16] MEDS ORDERED: LIDOCAINE HCL 1% 20ML VIAL (Pyxis) INJ ONE (13:03)
[2022-07-16] MEDS ORDERED: ONDANSETRON HCL 4MG/2ML INJ ONE (13:03)
[2022-07-16] MEDS ORDERED: DEXAMETHASONE 4MG/ML 1ML VIAL ONE (13:03)
[2022-07-16] MEDS ORDERED: FENTANYL CITRATE/PF 50MCG/ML 2ML VIAL ONE (13:15)
[2022-07-16] MEDS ORDERED: SIMETHICONE 40 MG/0.6 ML 15ML ONE (13:16)
[2022-07-17] VITALS (13 sets, daily range): BP systolic 93–131; BP diastolic 50–72
[2022-07-17] MEDS: ACETAMINOPHEN 500MG TABLET PO PRN ×3 (06:18→23:35)
[2022-07-17] MEDS: DEXT 5%/0.45% NACL 1000ML 1,000 ML IV SCH (06:19)
[2022-07-17 06:54] LABS: BASOPHILS % 0.1 % (0.0-2.0); HEMATOCRIT. 24.4 % (36.0-48.0); HEMOGLOBIN. 8.3 g/dL (12.0-16.0); MEAN CORPUSCULAR HEMOGLOBIN 32.2 pg (28.0-32.0); MEAN CORPUSCULAR VOLUME 94.9 fL (81.0-99.0); MEAN PLATELET VOLUME 10.7 fl (7.4-10.4); MONOCYTES % 3.9 % (2.0-8.0); PLATELET 95 x1000/uL (130-400); RED BLOOD CELL COUNT 2.57 mill/uL (4.2-5.4); RED CELL DISTRIBUTION WIDTH 17.8 % (11.6-14.6)
[2022-07-17] MEDS: BLOOD SUGAR DIAGNOSTIC STRIP TEST SCH ×4 (07:30→21:58)
[2022-07-17] MEDS: PANTOPRAZOLE SODIUM 40 MG/VIAL IV SCH (10:04)
[2022-07-17] MEDS: CARVEDILOL 3.125 MG TABLET PO SCH ×2 (10:05→21:16)
[2022-07-17] MEDS: INSULIN LISPRO 100 UNITS/ML SUBCUT SCH ×4 (10:07→21:58)
[2022-07-17 11:20] LABS: CHLORIDE 102 mEq/L (98-107)
[2022-07-17] MEDS: TRAMADOL 50MG TABLET PO PRN (23:14)
[2022-07-18] MEDS ORDERED: PANTOPRAZOLE 40MG DR TABLET PO SCH (07:30)
== END 2022-07-17 23:35 | DRG 378 ==
LOC: ER 16:50 → MICUSO 22:48 → EDBEDREQ 22:54 → 5EST 07-13 04:52
PROVIDERS: ADMIT Internal Medicine; ATTEND Internal Medicine
PROC: 0DB78ZX Excision of Stomach, Pylorus, Via Natural or Artificial Opening Endoscopic, Diagnostic (ICD-10-PCS; principal; 2022-07-16)
DX: K29.01 Acute gastritis with bleeding (principal); K76.6 Portal hypertension; K26.4 Chronic or unspecified duodenal ulcer with hemorrhage; I85.10 Secondary esophageal varices without bleeding; D64.9 Anemia, unspecified; K74.60 Unspecified cirrhosis of liver; K80.20 Calculus of gallbladder without cholecystitis without obstruction; Z20.822 Contact with and (suspected) exposure to COVID-19; E11.9 Type 2 diabetes mellitus without complications; I10 Essential (primary) hypertension; M17.9 Osteoarthritis of knee, unspecified; K31.89 Other diseases of stomach and duodenum; E78.00 Pure hypercholesterolemia, unspecified; E66.9 Obesity, unspecified; F03.90 Unspecified dementia, unspecified severity, without behavioral disturbance, psychotic disturbance, mood disturbance, and anxiety; R26.9 Unspecified abnormalities of gait and mobility; M17.0 Bilateral primary osteoarthritis of knee; K31.9 Disease of stomach and duodenum, unspecified; Z68.26 Body mass index [BMI] 26.0-26.9, adult; Z86.73 Personal history of transient ischemic attack (TIA), and cerebral infarction without residual deficits; Z83.3 Family history of diabetes mellitus; Z82.3 Family history of stroke; Z90.49 Acquired absence of other specified parts of digestive tract; Z88.8 Allergy status to other drugs, medicaments and biological substances; K26.9 Duodenal ulcer, unspecified as acute or chronic, without hemorrhage or perforation
CPT/HCPCS: 36415; 71045; 73562; 76705; 80048; 80053; 80076; 81003; 82105; 82140; 82378; 82607; 82728; 82746; 82962; 82977; 83036; 83540; 83550; 83605; 84145; 84439; 84443; 84484; 85014; 85018; 85025; 85044; 86705; 86709; 86803; 86850; 86900; 86920; 87340; 87426; 88305; 93005; 99291; C9113; J0696; J1100; J1815; J2270; J2354; J2405; J2704; J3010; J3490; J7030; J7050